=== PATIENT | male | born 1995 | race Caucasian/White ===

== ENCOUNTER 2016-04-05 19:45 | Emergency (ER) | payer OTHER ==
[~2016-04-05] VITALS: Ht 172.7 cm; Wt 65.8 kg
[~2016-04-05 19:45] MED LIST: AMOXICILLIN500 M2 PO; BIAXIN500 MG PO; CEPHALEXIN500 M1 PO; CLARITIN10 MG PO; CLEOCIN150 MG PO; DIFLUCAN200 MG PO; LIDEX 0.05% CRE15 GM T; MEDROL DOSEPAK4 MG PO; MOTRIN800 MG PO; NKHM; ULTRAM50 MG PO; ZANTAC150 MG PO; ZITHROMAX Z PA250 MG PO; ZITHROMAX250 MG PO; ZOFRAN4 MG PO
[2016-04-05] MEDS ORDERED: ANTIBIOTIC O500 U/GM T (20:05)
[2016-04-05] MEDS ORDERED: CLINDAMYCIN150 MG PO (20:05)
== END 2016-04-05 20:09 | disposition home or self-care (01) ==
LOC: ED 19:45
DX: S81.801A Unspecified open wound, right lower leg, initial encounter (principal); R03.0 Elevated blood-pressure reading, without diagnosis of hypertension; F17.200 Nicotine dependence, unspecified, uncomplicated; Z90.49 Acquired absence of other specified parts of digestive tract; Z88.0 Allergy status to penicillin; X58.XXXA Exposure to other specified factors, initial encounter; Y93.89 Activity, other specified; Y92.9 Unspecified place or not applicable; Y99.9 Unspecified external cause status

== ENCOUNTER 2016-07-25 01:20 | Emergency (ER) | payer OTHER ==
[~2016-07-25] VITALS: Ht 172.7 cm; Wt 65.8 kg
[~2016-07-25 01:20] MED LIST changes: +ANTIBIOTIC O500 U/GM T; +CLINDAMYCIN150 MG PO
[2016-07-25] MEDS ORDERED: BLEPH-10 15 ML15 ML OPH (01:51)
== END 2016-07-25 02:02 | disposition home or self-care (01) ==
LOC: ED 01:20
DX: H10.9 Unspecified conjunctivitis (principal); F17.200 Nicotine dependence, unspecified, uncomplicated; Z90.49 Acquired absence of other specified parts of digestive tract; Z88.0 Allergy status to penicillin

== ENCOUNTER 2016-09-11 14:17 | Emergency (ER) | payer OTHER ==
[~2016-09-11] VITALS: Ht 172.7 cm; Wt 65.8 kg
[~2016-09-11 14:17] MED LIST changes: +BLEPH-10 15 ML15 ML OPH
[2016-09-11 14:43] LABS: BASO % 0.3 % (0.0-1.0); EOS % 0.4 % (1.0-4.0); HEMATOCRIT 41.9 % (42.0-52.0); HEMOGLOBIN 15.1 g/dl (14.0-18.0); LYMPH # 1.9 10*3/uL (1.3-4.4); LYMPH % 17.4 % (27.0-41.0); MEAN CELL VOLUME 87.3 fl (80.0-94.0); MEAN CORPUSCULAR HGB 31.5 pg (27.0-31.0); MEAN PLATELET VOLUME 9.5 fl (9.6-12.3); MONO # 1.2 10*3/uL (0.1-1.0); MONO % 10.8 % (3.0-9.0); NEUT # 7.6 10*3/uL (2.3-7.9); NEUT % 70.9 % (47.0-73.0); PLATELET COUNT AUTOMATED 177 10*3/uL (130-400); RED CELL DISTRI WIDTH 11.6 % (0-14.5); WHITE BLOOD COUNT 10.7 10*3/uL (4.8-10.8)
[2016-09-11 14:59] LABS: ALBUMIN 3.9 gm/dl (3.1-4.5); ALKALINE PHOSPHATASE 96 U/L (45-117); BILIRUBIN, TOTAL 0.9 mg/dl (0.2-1.0); BUN 9 mg/dl (7-24); CARBON DIOXIDE 26 mmol/L (21-32); CHLORIDE 101 mmol/L (98-107); EST GLOM FILT AFRICAN AMERICAN > 60 ml/min; GLUCOSE 95 mg/dL (65-99); POTASSIUM 3.8 mmol/L (3.5-5.1); SGOT/AST 21 IU/L (3-35); SGPT/ALT 30 U/L (12-78); SODIUM 138 mmol/L (136-145); TOTAL PROTEIN 7.4 gm/dL (6.4-8.2)
[2016-09-11] MEDS ORDERED: VIBRAMYCIN100 MG PO (15:11)
== END 2016-09-11 15:14 | disposition home or self-care (01) ==
LOC: ED 14:17
PROVIDERS: Registered Nurse
DX: J02.9 Acute pharyngitis, unspecified (principal); M54.5 Low back pain; M43.6 Torticollis; R52 Pain, unspecified; F17.210 Nicotine dependence, cigarettes, uncomplicated; Z88.0 Allergy status to penicillin

== ENCOUNTER 2016-11-29 15:52 | Emergency (ER) | payer OTHER ==
[~2016-11-29] VITALS: Wt 65.8 kg
[~2016-11-29 15:52] MED LIST changes: +VIBRAMYCIN100 MG PO
[2016-11-29 16:37] LABS: BASO % 0.5 % (0.0-1.0); BILIRUBIN NEGATIVE (NEGATIVE); BLOOD 3+ (NEGATIVE); CLARITY SL CLOUDY (CLEAR); COLOR YELLOW (YELLOW); EOS # 0.4 10*3/uL (0.0-0.4); EOS % 4.6 % (1.0-4.0); GLUCOSE NEGATIVE (NEGATIVE); HEMATOCRIT 45.5 % (42.0-52.0); HEMOGLOBIN 15.5 g/dl (14.0-18.0); KETONE NEGATIVE (NEGATIVE); LEUKO ESTERASE NEGATIVE (NEGATIVE); LYMPH # 3.5 10*3/uL (1.3-4.4); LYMPH % 40.7 % (27.0-41.0); MEAN CELL VOLUME 86.7 fl (80.0-94.0); MEAN CORPUSCULAR HGB 29.5 pg (27.0-31.0); MEAN CORPUSCULAR HGB CONC 34.1 g/dl (33.0-37.0); MEAN PLATELET VOLUME 9.5 fl (9.6-12.3); MONO # 0.6 10*3/uL (0.1-1.0); MONO % 6.7 % (3.0-9.0); NEUT # 4.1 10*3/uL (2.3-7.9); NEUT % 47.3 % (47.0-73.0); NITRITE NEGATIVE (NEGATIVE); PLATELET COUNT AUTOMATED 201 10*3/uL (130-400); RED BLOOD COUNT 5.25 10*6/uL (4.50-5.90); WHITE BLOOD COUNT 8.7 10*3/uL (4.8-10.8)
[2016-11-29 16:43] LABS: BACTERIA TRACE; MUCOUS 1+; RBC 51-100 rbc/hpf (0-2)
[2016-11-29 16:51] LABS: ALBUMIN 3.9 gm/dl (3.1-4.5); ALKALINE PHOSPHATASE 140 U/L (45-117); BUN 8 mg/dl (7-24); CHLORIDE 106 mmol/L (98-107); CREATININE 0.87 mg/dL (0.70-1.30); LIPASE 90 U/L (73-393); POTASSIUM 4.1 mmol/L (3.5-5.1); SGOT/AST 79 IU/L (3-35); SGPT/ALT 77 U/L (12-78); SODIUM 139 mmol/L (136-145)
[2016-11-29] MEDS ORDERED: NORCO 5-325 TA1 EACH PO (18:30)
[2016-11-29] MEDS ORDERED: ZOFRAN ODT4 MG SL (18:30)
[2016-11-29] MEDS ORDERED: FLOMAX0.4 MG PO (18:30)
== END 2016-11-29 18:40 | disposition home or self-care (01) ==
LOC: ED 15:52
PROVIDERS: Nurse Practitioner Family
DX: N21.8 Other lower urinary tract calculus (principal); F17.200 Nicotine dependence, unspecified, uncomplicated; Z98.890 Other specified postprocedural states; Z88.0 Allergy status to penicillin

== ENCOUNTER 2017-02-12 10:23 | Emergency (ER) | payer SELFPAY ==
[~2017-02-12] VITALS: Ht 170.1 cm; Wt 74.8 kg
[~2017-02-12 10:23] MED LIST changes: +FLOMAX0.4 MG PO; +NORCO 5-325 TA1 EACH PO; +ZOFRAN ODT4 MG SL
[2017-02-12] MEDS ORDERED: Peridex 473 ML473 ML PO (10:58)
[2017-02-12] MEDS ORDERED: PREDNISONE10 MG PO (10:58)
[2017-02-12] MEDS ORDERED: CLINDAMYCIN150 MG PO (10:58)
== END 2017-02-12 11:08 | disposition home or self-care (01) ==
LOC: ED 10:23
DX: J02.9 Acute pharyngitis, unspecified (principal); K08.89 Other specified disorders of teeth and supporting structures; F17.200 Nicotine dependence, unspecified, uncomplicated; Z98.890 Other specified postprocedural states; Z79.899 Other long term (current) drug therapy; Z88.0 Allergy status to penicillin

== ENCOUNTER 2017-06-30 12:19 | Emergency (ER) | payer SELFPAY ==
[~2017-06-30] VITALS: Ht 172.7 cm; Wt 68.0 kg
[~2017-06-30 12:19] MED LIST changes: +PREDNISONE10 MG PO; +Peridex 473 ML473 ML PO
== END 2017-06-30 13:51 | disposition home or self-care (01) ==
LOC: ED 12:19
DX: B34.9 Viral infection, unspecified (principal); Z88.0 Allergy status to penicillin

== ENCOUNTER 2017-08-20 17:18 | Emergency (ER) | payer SELFPAY ==
[~2017-08-20] VITALS: Wt 70.3 kg
[2017-08-20] MEDS ORDERED: ZITHROMAX250 MG PO (19:18)
== END 2017-08-20 19:20 | disposition home or self-care (01) ==
LOC: ED 17:18
DX: J02.9 Acute pharyngitis, unspecified (principal); J06.9 Acute upper respiratory infection, unspecified; Z98.890 Other specified postprocedural states; Z88.0 Allergy status to penicillin

== ENCOUNTER 2018-08-22 23:53 | Emergency (ER) | payer SELFPAY ==
[~2018-08-22] VITALS: Ht 172.7 cm; Wt 65.8 kg
[~2018-08-22 23:53] MED LIST changes: +FLONASE ALLERG9.9 ML NAS; +PROAIR HFA8.5 GM INH
[2018-08-23] MEDS ORDERED: CLINDAMYCIN HC300 MG PO (00:38)
[2018-08-23] MEDS ORDERED: NAPROSYN500 MG PO (00:38)
== END 2018-08-23 00:45 | disposition home or self-care (01) ==
LOC: ED 23:53
DX: K02.9 Dental caries, unspecified (principal); Z88.0 Allergy status to penicillin

== ENCOUNTER 2018-09-28 08:36 | Emergency (ER) | payer SELFPAY ==
[~2018-09-28] VITALS: Ht 172.7 cm; Wt 65.8 kg
[~2018-09-28 08:36] MED LIST changes: +CLINDAMYCIN HC300 MG PO; +NAPROSYN500 MG PO
[2018-09-28] MEDS ORDERED: MEDROL DOSEPAK4 MG PO (09:43)
== END 2018-09-28 09:56 | disposition home or self-care (01) ==
LOC: ED 08:36
DX: T63.441A Toxic effect of venom of bees, accidental (unintentional), initial encounter (principal); L50.9 Urticaria, unspecified; L53.9 Erythematous condition, unspecified; Z88.0 Allergy status to penicillin; Z90.49 Acquired absence of other specified parts of digestive tract; Y92.098 Other place in other non-institutional residence as the place of occurrence of the external cause

== ENCOUNTER 2018-10-07 22:21 | Emergency (ER) | payer SELFPAY ==
[~2018-10-07] VITALS: Ht 172.7 cm; Wt 65.8 kg
[2018-10-07 23:18] LABS: BASO % 0.4 % (0.0-1.0); EOS # 0.1 10*3/uL (0.0-0.4); HEMATOCRIT 43.5 % (42.0-52.0); HEMOGLOBIN 14.9 g/dl (14.0-18.0); LYMPH # 2.2 10*3/uL (1.3-4.4); LYMPH % 20.5 % (27.0-41.0); MEAN CELL VOLUME 88.6 fl (80.0-94.0); MEAN CORPUSCULAR HGB 30.3 pg (27.0-31.0); MEAN CORPUSCULAR HGB CONC 34.3 g/dl (33.0-37.0); MEAN PLATELET VOLUME 9.6 fl (9.6-12.3); MONO # 1.3 10*3/uL (0.1-1.0); MONO % 12.2 % (3.0-9.0); NEUT % 65.7 % (47.0-73.0); PLATELET COUNT AUTOMATED 198 10*3/uL (130-400); RED BLOOD COUNT 4.91 10*6/uL (4.50-5.90); RED CELL DISTRI WIDTH 11.7 % (0-14.5); WHITE BLOOD COUNT 10.7 10*3/uL (4.8-10.8)
[2018-10-07 23:32] LABS: BUN 12 mg/dl (7-24); CHLORIDE 105 mmol/L (98-107); CREATININE 1.03 mg/dL (0.70-1.30); POTASSIUM 4.1 mmol/L (3.5-5.1); SODIUM 138 mmol/L (136-145)
[2018-10-08] MEDS ORDERED: TESSALON PERLE100 M1 PO (00:52)
[2018-10-08] MEDS ORDERED: PROAIR HFA8.5 GM INH (00:52)
== END 2018-10-08 00:55 | disposition home or self-care (01) ==
LOC: ED 22:21
PROVIDERS: Nurse Practitioner
DX: J40 Bronchitis, not specified as acute or chronic (principal); F17.200 Nicotine dependence, unspecified, uncomplicated; Z71.6 Tobacco abuse counseling; Z88.0 Allergy status to penicillin

== ENCOUNTER 2018-12-30 11:06 | Emergency (ER) | payer SELFPAY ==
[~2018-12-30] VITALS: Wt 65.8 kg
[~2018-12-30 11:06] MED LIST changes: +TESSALON PERLE100 M1 PO
[2018-12-30] MEDS ORDERED: Motrin,Rufen800 MG PO (11:32)
[2018-12-30] MEDS ORDERED: CLINDAMYCIN150 MG PO (11:32)
== END 2018-12-30 11:48 | disposition home or self-care (01) ==
LOC: ED 11:06
DX: K08.89 Other specified disorders of teeth and supporting structures (principal); F17.200 Nicotine dependence, unspecified, uncomplicated; Z98.890 Other specified postprocedural states; Z88.0 Allergy status to penicillin

== ENCOUNTER 2019-01-23 21:53 | Emergency (ER) | payer SELFPAY ==
[~2019-01-23] VITALS: Ht 170.1 cm; Wt 65.8 kg
[~2019-01-23 21:53] MED LIST changes: +Motrin,Rufen800 MG PO
[2019-01-23] MEDS ORDERED: CLINDAMYCIN HC300 MG PO (23:25)
== END 2019-01-23 23:23 | disposition home or self-care (01) ==
LOC: ED 21:53
DX: K08.89 Other specified disorders of teeth and supporting structures (principal); Z88.0 Allergy status to penicillin; Z79.2 Long term (current) use of antibiotics; Z79.899 Other long term (current) drug therapy

== ENCOUNTER 2020-06-10 15:26 | Emergency (ER) | payer OTHER ==
[~2020-06-10] VITALS: Ht 172.7 cm; Wt 65.8 kg
[2020-06-11 08:06] LABS: HEPATITIS B SURFACE AB Non Reactive (.); HEPATITIS C AB <0.1 (0.0-0.9)
== END 2020-06-10 16:00 | disposition home or self-care (01) ==
LOC: ED 15:26
PROVIDERS: Physician Assistant
DX: S61.234A Puncture wound without foreign body of right ring finger without damage to nail, initial encounter (principal); Z88.0 Allergy status to penicillin; Z79.899 Other long term (current) drug therapy; Z98.890 Other specified postprocedural states; X58.XXXA Exposure to other specified factors, initial encounter; Y93.89 Activity, other specified; Y92.89 Other specified places as the place of occurrence of the external cause; Y99.8 Other external cause status

== ENCOUNTER 2020-07-03 20:15 | Emergency (ER) | payer OTHER | END 2020-07-03 20:54 | disposition left against medical advice (07) | LOC: ED 20:15 | DX: K08.89 Other specified disorders of teeth and supporting structures (principal); Z53.21 Procedure and treatment not carried out due to patient leaving prior to being seen by health care provider ==

== ENCOUNTER 2020-07-30 07:14 | Emergency (ER) | payer OTHER ==
[~2020-07-30] VITALS: Ht 170.1 cm; Wt 65.8 kg
[2020-07-30] MEDS ORDERED: Motrin,Rufen800 MG PO (08:19)
[2020-07-30] MEDS ORDERED: CLEOCIN HCL150 MG PO (08:19)
== END 2020-07-30 08:32 | disposition home or self-care (01) ==
LOC: ED 07:14
DX: K08.89 Other specified disorders of teeth and supporting structures (principal); Z88.0 Allergy status to penicillin; Z98.890 Other specified postprocedural states

== ENCOUNTER 2023-02-26 11:31 | Emergency (ER) | payer OTHER ==
[~2023-02-26] VITALS: Wt 70.8 kg
[~2023-02-26 11:31] MED LIST changes: +CLEOCIN HCL150 MG PO
[2023-02-26 12:16] LABS: BASO % 0.5 % (0.0-1.0); EOS # 0.3 10*3/uL (0.0-0.4); EOS % 3.6 % (1.0-4.0); HEMATOCRIT 47.4 % (42.0-52.0); LYMPH # 3.3 10*3/uL (1.3-4.4); LYMPH % 41.5 % (27.0-41.0); MEAN CELL VOLUME 88.3 fl (80.0-94.0); MEAN CORPUSCULAR HGB 30.5 pg (27.0-31.0); MEAN CORPUSCULAR HGB CONC 34.6 g/dl (33.0-37.0); MONO # 0.5 10*3/uL (0.1-1.0); NEUT # 3.8 10*3/uL (2.3-7.9); NEUT % 48.1 % (47.0-73.0); PLATELET COUNT AUTOMATED 344 10*3/uL (130-400); RED BLOOD COUNT 5.37 10*6/uL (4.50-5.90); RED CELL DISTRI WIDTH 12.1 % (0-14.5); WHITE BLOOD COUNT 7.9 10*3/uL (4.8-10.8)
[2023-02-26 12:27] LABS: ACT PARTIAL THROMBO TIME 31.6 SECONDS (20.0-32.1)
[2023-02-26 12:43] LABS: ALKALINE PHOSPHATASE 107 U/L (46-116); BUN 11 mg/dl (9-23); CHLORIDE 108 mmol/L (98-107); POTASSIUM 3.8 mmol/L (3.4-5.1); SGPT/ALT 47 U/L (5-49); TOTAL PROTEIN 8.1 gm/dL (6.0-8.0)
[2023-02-26] MEDS ORDERED: CYCLOBENZAPRINE10 MG PO (15:37)
== END 2023-02-26 15:47 | disposition home or self-care (01) ==
LOC: ED 11:31
PROVIDERS: Nurse Practitioner
DX: S80.211A Abrasion, right knee, initial encounter (principal); M54.50 Low back pain, unspecified; M25.551 Pain in right hip; R10.2 Pelvic and perineal pain; Z88.0 Allergy status to penicillin; Z98.890 Other specified postprocedural states; V23.49XA Other motorcycle driver injured in collision with car, pick-up truck or van in traffic accident, initial encounter; Y93.55 Activity, bike riding; Y92.410 Unspecified street and highway as the place of occurrence of the external cause; Y99.8 Other external cause status

== ENCOUNTER 2023-05-04 15:48 | Emergency (ER) | payer OTHER ==
[~2023-05-04 15:48] MED LIST changes: +CYCLOBENZAPRINE10 MG PO
== END 2023-05-04 16:26 | disposition left against medical advice (07) ==
LOC: ED 15:48
DX: R69 Illness, unspecified (principal); Z88.0 Allergy status to penicillin; Z53.21 Procedure and treatment not carried out due to patient leaving prior to being seen by health care provider